=== PATIENT | female | born 1950 | race Caucasian/White ===

== ENCOUNTER 2019-11-03 11:49 | Emergency (ER) | payer MEDICARE, MEDICAID, SELFPAY ==
[2019-11-03 11:52] VITALS: BP 183/120; PULSE 78; RESP 20; TEMP 36.5; O2SAT 99
--- NOTE | 2019-11-03 12:21 | ED.SKABFB ---
HPI - Skin/Abscess/Foreign Bdy General Chief complaint: Skin/Abscess/Foreign Body Stated complaint: R DIALYSIS SITE INFECTION Time Seen by Provider: 11/03/19 12:18 Source: patient Mode of arrival: ambulatory Limitations: no limitations History of Present Illness HPI narrative: A 69 y/o female presents to the ED with c/o right arm infection. Pt states that on 10/09/19 she had a fistula placed in her right arm for dialysis. The surgery was done by her vascular surgeon, Dr. Rothman, at [facility]. She notes that last week her right arm started to become red and sore. Today she adds that she saw a pus pocket, so she decided to come to the ED. Pt reports that she has not removed the wrapping on her arm after the surgery, but cleans around it everyday. She has not had a follow-up appointment with Dr. Rothman. Pt denies fever and chills. 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 She has a PMHx of HTN, hyperlipidemia, emphysema, COPD, asthma, [place], and coronary STENT. She is not currently on blood thinners and is a smoker. MD complaint: other (Right arm infection) Onset (ago): week(s) (1) Location: RUE Pain Consistency: constant Context: other (Recent surgery) Associated symptoms: other (Right arm redness, right arm pain) Treatments prior to arrival: attempted to drain pus at home Related Data Home Medications Medication Instructions Recorded Confirmed aspirin 81 mg tablet,delayed 81 mg PO DAILY 07/05/19 11/01/19 release atorvastatin 40 mg tablet 40 mg PO DAILY 07/05/19 11/01/19 calcitriol 0.25 mcg capsule 0.25 mcg PO DAILY 08/07/19 11/01/19 diphenhydramine HCl 25 mg capsule 50 mg PO Q4-6H PRN cap 08/07/19 11/01/19 escitalopram oxalate 10 mg tablet 10 mg PO DAILY 08/07/19 11/01/19 nifedipine 30 mg tablet,extended 30 mg PO DAILY 08/07/19 11/01/19 release budesonide-formoterol HFA 160 2 puff INHALATION Q12H 11/01/19 11/01/19 mcg-4.5 mcg/actuation aerosol inhaler cholecalciferol (vitamin D3) 50 50 mcg PO DAILY 11/01/19 11/01/19 mcg (2,000 unit) capsule hydralazine 25 mg tablet 25 mg PO BID tablet 11/01/19 11/01/19 losartan 50 mg tablet 50 mg PO DAILY 11/01/19 11/01/19 ferric citrate [Auryxia] 210 mg PO DAILY 11/03/19 Allergies Allergy/AdvReac Type Severity Reaction Status Date / Time cephalexin Allergy Unknown Unknown Verified 11/03/19 12:10 doxycycline Allergy Unknown Unknown Verified 11/03/19 12:10 doxylamine Allergy Unknown Unknown Verified 11/03/19 12:10 lisinopril Allergy Unknown Unknown Verified 11/03/19 12:10 tetracycline Allergy Unknown Unknown Verified 11/03/19 12:10 sertraline AdvReac Intermediate VOMITTING Verified 11/03/19 12:10 SUCCINATE Allergy Mild Nausea Uncoded 11/01/19 14:36 MONOHYDRATE AdvReac Mild Nausea and Uncoded 11/01/19 14:36 Vomiting Review of Systems Review of Systems: All systems reviewed & are unremarkable except as noted in HPI and below Constitutional: Constitutional: Denies chills and Denies fever(s) Musculoskeletal: Musculoskeletal: Reports arthralgias (Right arm) Integumentary/Breasts: Skin/Breast: Reports erythema (Right arm) [facility] Past Medical History Medical History (Updated 11/05/19 @ 00:00 by Mira Menendez) Anxiety Arthritis Bipolar disorder Bowel obstruction 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 Chronic back pain CKD (chronic kidney disease) CKD (chronic kidney disease) stage 3, GFR 30-59 ml/min Claudication Colitis Colon cancer Depression Diabetes 1.5, managed as type 2 PALOMARES (dyspnea on exertion) Dyslipidemia Essential hypertension GERD (gastroesophageal reflux disease) Melanoma Right eye Post-menopausal Preop cardiovascular exam Tobacco abuse Surgical History Surgical History (Updated 11/03/19 @ 12:58 by Christina Tenorio) History of appendectomy History of bilateral oophorectomy History of colon resection History of colostomy reversal History of heart artery stent History of hernia repair History of tubal ligation Status post carotid surgery Family History Family
[2019-11-03 12:31] LABS: Basophils Absolute Auto 0.1 K/mm3 (0.0-0.1); Basophils Percent Auto 0.6 % (0.2-1.2); Eosinophils Absolute Auto 0.5 K/mm3 (0-0.3); Eosinophils Percent Auto 3.7 % (0-4.4); Hematocrit 35.9 % (37.0-47.0); Hemoglobin 11.2 g/dL (12.0-15.0); Immature Granulocyte Absolute 0.07 K/mm3 (0.00-0.031); Immature Granulocyte Percent A 0.6 % (0-0.5); Lymphocytes Absolute Auto 3.24 K/mm3 (0.9-3.2); Lymphocytes Percent Auto 26.3 % (18.3-44.2); Mean Corpuscular HGB Conc 31.2 g/dl (32-36); Mean Corpuscular Hemoglobin 28.3 pg (26-34); Mean Corpuscular Volume 90.7 fl (80-100); Mean Platelet Volume 9.8 fl (7.4-10.4); Monocytes Absolute Auto 0.8 K/mm3 (0.1-0.6); Monocytes Percent Auto 6.4 % (2.6-8.5); Neutrophils Absolute Auto 7.7 K/mm3 (1.3-6.7); Neutrophils Percent Auto 62.4 % (45.5-73.1); Platelet Count Result 396 k/mm3 (150-375); Red Blood Count 3.96 M/mm3 (4.2-5.4); Red Cell Distribution Width 15.3 % (11.5-14.5); White Blood Count 12.3 K/mm3 (4.5-10.0)
[2019-11-03 12:42] LABS: Alanine Aminotransferase 12 U/L (4-35); Albumin Level 4.2 g/dL (3.5-5.1); Alkaline Phosphatase 57 U/L (38-126); Aspartate Amino Transferase 15 U/L (14-36); Bilirubin,Total 0.3 mg/dL (0.2-1.3); Blood Urea Nitrogen 32 mg/dL (7-17); Carbon Dioxide 26 mmol/L (22-30); Chloride 106 mmol/L (98-107); Estimated Glomerular Filt Rate 14; Glucose 114 mg/dL (65-105); Potassium 3.4 mmol/L (3.4-5.0); Sodium 139 mmol/L (137-145)
[2019-11-03 14:41] VITALS: BP 160/66; PULSE 84; RESP 16; O2SAT 97
--- NOTE | 2019-11-03 14:44 | PC.NURSE ---
accepted by [facility] [id number]
[2019-11-03 14:46] LABS: Lactic Acid Reflex 0.9 mmol/L (0.7-2.1)
[2019-11-03 16:57] VITALS: BP 171/92; PULSE 84; RESP 16; O2SAT 97
== END 2019-11-03 14:52 | disposition short-term general hospital (02) ==
PROVIDERS: Emergency Provider Emergency Medicine; PCP Internal Medicine
DX: T82.7XXA Infection and inflammatory reaction due to other cardiac and vascular devices, implants and grafts, initial encounter (principal); I12.9 Hypertensive chronic kidney disease with stage 1 through stage 4 chronic kidney disease, or unspecified chronic kidney disease; N18.3 Chronic kidney disease, stage 3 (moderate); E13.22 Other specified diabetes mellitus with diabetic chronic kidney disease; N18.9 Chronic kidney disease, unspecified; Z99.2 Dependence on renal dialysis; E78.5 Hyperlipidemia, unspecified; J43.9 Emphysema, unspecified; J45.909 Unspecified asthma, uncomplicated; I25.2 Old myocardial infarction; Z95.5 Presence of coronary angioplasty implant and graft; F17.200 Nicotine dependence, unspecified, uncomplicated; Z85.038 Personal history of other malignant neoplasm of large intestine; K21.9 Gastro-esophageal reflux disease without esophagitis; Z90.49 Acquired absence of other specified parts of digestive tract; Z85.820 Personal history of malignant melanoma of skin
CPT/HCPCS: 36415; 80053; 83605; 85025; 87040; 87070; 87077; 87186; 87205; 96365; 99285; J3370

== ENCOUNTER 2019-11-24 13:14 | Outpatient (RCR) | payer MEDICARE, MEDICAID, SELFPAY ==
[2019-11-24 14:18] LABS: Vancomycin Trough 16.2 ug/mL (10.0-20.0)
== END 2020-02-22 23:59 | disposition home or self-care (01) ==
LOC: HOME HLTH 13:14
PROVIDERS: PCP Internal Medicine; Visit Provider Internal Medicine Infectious Disease
DX: T82.7XXD Infection and inflammatory reaction due to other cardiac and vascular devices, implants and grafts, subsequent encounter (principal); N18.9 Chronic kidney disease, unspecified; B96.5 Pseudomonas (aeruginosa) (mallei) (pseudomallei) as the cause of diseases classified elsewhere; Z79.2 Long term (current) use of antibiotics
CPT/HCPCS: 80202

== ENCOUNTER 2019-11-26 11:53 | Outpatient (RCR) | payer MEDICARE, MEDICAID, SELFPAY ==
[2019-11-14 12:20] LABS: Basophils Absolute Auto 0.1 K/mm3 (0.0-0.1); Basophils Percent Auto 0.5 % (0.2-1.2); Eosinophils Absolute Auto 0.4 K/mm3 (0-0.3); Eosinophils Percent Auto 3.1 % (0-4.4); Hematocrit 32.3 % (37.0-47.0); Hemoglobin 10.1 g/dL (12.0-15.0); Immature Granulocyte Absolute 0.09 K/mm3 (0.00-0.031); Immature Granulocyte Percent A 0.7 % (0-0.5); Lymphocytes Absolute Auto 3.18 K/mm3 (0.9-3.2); Mean Corpuscular HGB Conc 31.3 g/dl (32-36); Mean Corpuscular Hemoglobin 27.9 pg (26-34); Mean Corpuscular Volume 89.2 fl (80-100); Mean Platelet Volume 10.5 fl (7.4-10.4); Monocytes Absolute Auto 0.9 K/mm3 (0.1-0.6); Monocytes Percent Auto 7.1 % (2.6-8.5); Neutrophils Absolute Auto 8.6 K/mm3 (1.3-6.7); Neutrophils Percent Auto 64.6 % (45.5-73.1); Platelet Count Result 341 k/mm3 (150-375); Red Blood Count 3.62 M/mm3 (4.2-5.4); Red Cell Distribution Width 15.7 % (11.5-14.5); White Blood Count 13.3 K/mm3 (4.5-10.0)
[2019-11-14 12:22] LABS: Alanine Aminotransferase 8 U/L (4-35); Albumin Level 3.8 g/dL (3.5-5.1); Alkaline Phosphatase 44 U/L (38-126); Aspartate Amino Transferase 12 U/L (14-36); Bilirubin,Total < 0.1 mg/dL (0.2-1.3); Blood Urea Nitrogen 31 mg/dL (7-17); Calcium 9.7 mg/dL (8.4-10.2); Carbon Dioxide 20 mmol/L (22-30); Chloride 109 mmol/L (98-107); Estimated Glomerular Filt Rate 14; Glucose 104 mg/dL (65-105); Potassium 3.4 mmol/L (3.4-5.0); Sodium 137 mmol/L (137-145)
[2019-11-14 12:39] LABS: Vancomycin Random 17.7 ug/mL (10-20)
[2019-11-20 11:47] LABS: Alanine Aminotransferase 9 U/L (4-35); Albumin Level 3.8 g/dL (3.5-5.1); Alkaline Phosphatase 50 U/L (38-126); Aspartate Amino Transferase 14 U/L (14-36); Bilirubin,Total < 0.1 mg/dL (0.2-1.3); Blood Urea Nitrogen 35 mg/dL (7-17); Calcium 9.4 mg/dL (8.4-10.2); Carbon Dioxide 22 mmol/L (22-30); Chloride 105 mmol/L (98-107); Estimated Glomerular Filt Rate 14; Glucose 88 mg/dL (65-105); Potassium 3.1 mmol/L (3.4-5.0); Sodium 139 mmol/L (137-145)
[2019-11-20 11:48] LABS: Basophils Absolute Auto 0.1 K/mm3 (0.0-0.1); Basophils Percent Auto 0.5 % (0.2-1.2); Eosinophils Absolute Auto 0.4 K/mm3 (0-0.3); Eosinophils Percent Auto 3.6 % (0-4.4); Hematocrit 31.8 % (37.0-47.0); Hemoglobin 9.9 g/dL (12.0-15.0); Immature Granulocyte Percent A 0.8 % (0-0.5); Lymphocytes Absolute Auto 2.83 K/mm3 (0.9-3.2); Lymphocytes Percent Auto 23.4 % (18.3-44.2); Mean Corpuscular HGB Conc 31.1 g/dl (32-36); Mean Corpuscular Hemoglobin 27.8 pg (26-34); Mean Corpuscular Volume 89.3 fl (80-100); Mean Platelet Volume 10.4 fl (7.4-10.4); Monocytes Absolute Auto 1.1 K/mm3 (0.1-0.6); Monocytes Percent Auto 9.1 % (2.6-8.5); Neutrophils Absolute Auto 7.6 K/mm3 (1.3-6.7); Neutrophils Percent Auto 62.6 % (45.5-73.1); Platelet Count Result 354 k/mm3 (150-375); Red Blood Count 3.56 M/mm3 (4.2-5.4); Red Cell Distribution Width 15.1 % (11.5-14.5); White Blood Count 12.1 K/mm3 (4.5-10.0)
[2019-11-20 11:52] LABS: Vancomycin Trough 25.7 ug/mL (10.0-20.0)
[2019-11-26 12:15] LABS: Basophils Absolute Auto 0.1 K/mm3 (0.0-0.1); Basophils Percent Auto 0.5 % (0.2-1.2); Eosinophils Absolute Auto 0.6 K/mm3 (0-0.3); Eosinophils Percent Auto 4.2 % (0-4.4); Hematocrit 31.7 % (37.0-47.0); Immature Granulocyte Absolute 0.11 K/mm3 (0.00-0.031); Immature Granulocyte Percent A 0.8 % (0-0.5); Lymphocytes Percent Auto 19.3 % (18.3-44.2); Mean Corpuscular HGB Conc 31.5 g/dl (32-36); Mean Corpuscular Hemoglobin 28.1 pg (26-34); Mean Platelet Volume 9.8 fl (7.4-10.4); Monocytes Absolute Auto 0.9 K/mm3 (0.1-0.6); Neutrophils Absolute Auto 9.2 K/mm3 (1.3-6.7); Neutrophils Percent Auto 68.2 % (45.5-73.1); Platelet Count Result 355 k/mm3 (150-375); Red Blood Count 3.56 M/mm3 (4.2-5.4); Red Cell Distribution Width 14.6 % (11.5-14.5); White Blood Count 13.5 K/mm3 (4.5-10.0)
[2019-11-26 12:28] LABS: Alanine Aminotransferase 7 U/L (4-35); Albumin Level 3.8 g/dL (3.5-5.1); Alkaline Phosphatase 47 U/L (38-126); Aspartate Amino Transferase 14 U/L (14-36); Bilirubin,Total < 0.1 mg/dL (0.2-1.3); Blood Urea Nitrogen 38 mg/dL (7-17); Calcium 9.7 mg/dL (8.4-10.2); Carbon Dioxide 23 mmol/L (22-30); Chloride 104 mmol/L (98-107); Estimated Glomerular Filt Rate 14; Glucose 88 mg/dL (65-105); Potassium 3.9 mmol/L (3.4-5.0); Sodium 137 mmol/L (137-145)
[2019-11-26 12:57] LABS: Vancomycin Trough 10.1 ug/mL (10.0-20.0)
== END 2020-02-12 23:59 | disposition home or self-care (01) ==
LOC: HOME HLTH 11:53
PROVIDERS: PCP Internal Medicine
DX: N18.9 Chronic kidney disease, unspecified (principal); T82.7XXD Infection and inflammatory reaction due to other cardiac and vascular devices, implants and grafts, subsequent encounter; B96.5 Pseudomonas (aeruginosa) (mallei) (pseudomallei) as the cause of diseases classified elsewhere
CPT/HCPCS: 80053; 80202; 85025

== ENCOUNTER 2019-11-29 10:27 | Outpatient (CLI) | payer MEDICARE, MEDICAID, SELFPAY ==
[2019-11-29 10:42] LABS: Basophils Absolute Auto 0.1 K/mm3 (0.0-0.1); Basophils Percent Auto 0.6 % (0.2-1.2); Eosinophils Absolute Auto 0.5 K/mm3 (0-0.3); Eosinophils Percent Auto 3.7 % (0-4.4); Hemoglobin 10.6 g/dL (12.0-15.0); Immature Granulocyte Absolute 0.14 K/mm3 (0.00-0.031); Immature Granulocyte Percent A 1.1 % (0-0.5); Lymphocytes Absolute Auto 2.19 K/mm3 (0.9-3.2); Lymphocytes Percent Auto 17.8 % (18.3-44.2); Mean Corpuscular HGB Conc 31.2 g/dl (32-36); Mean Corpuscular Hemoglobin 27.9 pg (26-34); Mean Corpuscular Volume 89.5 fl (80-100); Mean Platelet Volume 9.5 fl (7.4-10.4); Monocytes Percent Auto 8.4 % (2.6-8.5); Neutrophils Absolute Auto 8.4 K/mm3 (1.3-6.7); Neutrophils Percent Auto 68.4 % (45.5-73.1); Platelet Count Result 355 k/mm3 (150-375); Red Cell Distribution Width 14.9 % (11.5-14.5); White Blood Count 12.3 K/mm3 (4.5-10.0)
[2019-11-29 11:01] LABS: Alanine Aminotransferase 9 U/L (4-35); Alkaline Phosphatase 49 U/L (38-126); Aspartate Amino Transferase 16 U/L (14-36); Bilirubin,Total 0.1 mg/dL (0.2-1.3); Blood Urea Nitrogen 39 mg/dL (7-17); Calcium 9.4 mg/dL (8.4-10.2); Carbon Dioxide 22 mmol/L (22-30); Chloride 104 mmol/L (98-107); Estimated Glomerular Filt Rate 12; Glucose 128 mg/dL (65-105); Potassium 3.6 mmol/L (3.4-5.0); Sodium 139 mmol/L (137-145)
[2019-11-29 11:21] LABS: Vancomycin Trough 25.2 ug/mL (10.0-20.0)
== END 2019-11-29 10:28 | disposition home or self-care (01) ==
PROVIDERS: PCP Internal Medicine; Visit Provider Internal Medicine Infectious Disease
DX: N18.9 Chronic kidney disease, unspecified (principal); B96.5 Pseudomonas (aeruginosa) (mallei) (pseudomallei) as the cause of diseases classified elsewhere; T82.7XXA Infection and inflammatory reaction due to other cardiac and vascular devices, implants and grafts, initial encounter
CPT/HCPCS: 80053; 80202; 85025

== ENCOUNTER 2020-12-30 08:22 | Outpatient (CLI) | payer MEDICARE, MEDICAID, SELFPAY ==
--- NOTE | 2020-12-30 08:51 | ECHO_ITS ---
Patient Info Name: Desirae Perdomo Age: 70 years : 1950 Gender: Female Ht: 63 in Wt: 186 lbs BSA: 1.97 m2 HR: 60 bpm BP: 146 / 77 mmHg Technical Quality: Good Exam Date: 12/30/2020 9:10 AM Exam Location: [facility] Patient Status: Outpatient Admit Date: 12/30/2020 Staff Ordering Physician: Vance Chew DO Telephone Station Repairer: Benji Sommer RDCS, RT Attending Provider: Vance Chew DO Referring Physician: Jeevan DIMAS; Exam Type: CA echo doppler color flow Study Info Indications R01.1 - Cardiac murmur, unspecified Complete two-dimensional, color flow and Doppler transthoracic echocardiogram is performed. Strain analysis performed. Summary 1. Complete two-dimensional, color flow and Doppler transthoracic echocardiogram is performed. 2. Left ventricular chamber dimension is normal. 3. Left ventricular systolic function is normal, estimated at 60-65%. 4. There is moderately increased left ventricular wall thickness. 5. The left ventricular diastolic function is abnormal. 6. E/e' 20 is elevated. 7. Global longitudinal strain is abnormal at -13.7%. 8. Left atrial chamber dimension is mildly enlarged. 9. The mitral valve has moderately calcified annulus. 10. There is mild to moderate mitral valve regurgitation. 11. There is trace pulmonic regurgitation. 12. Dilated inferior vena cava with >50% collapse upon inspiration consistent with elevated right atrial pressure, 10 mmHg. Left Ventricle E/e' 20 is elevated. Global longitudinal strain is abnormal at -13.7%. Left ventricular chamber dimension is normal. Left ventricular systolic function is normal, estimated at 60-65%. There is moderately increased left ventricular wall thickness. The left ventricular diastolic function is abnormal. Right Ventricle Right ventricular systolic function is normal with normal TAPSE 1.9 cm. Right ventricular chamber dimension is normal. Left Atria Left atrial chamber dimension is mildly enlarged. Right Atria Right atrial chamber dimension is normal. Aortic Valve The aortic valve is trileaflet. There is no aortic valve stenosis. There is no aortic valve regurgitation. Pulmonic Valve There is trace pulmonic regurgitation. Mitral Valve The mitral valve has moderately calcified annulus. There is no mitral valve stenosis. There is mild to moderate mitral valve regurgitation. Tricuspid Valve There is no tricuspid valve regurgitation. Pericardium/Pleural There is no pericardial effusion. Inferior Vena Cava Dilated inferior vena cava with >50% collapse upon inspiration consistent with elevated right atrial pressure, 10 mmHg. Aorta The aortic root size at the sinus of Valsalva is normal. Left Ventricular Outflow Tract Name Value Normal LVOT 2D LVOT Diameter 2.0 cm LVOT Doppler LVOT Peak Gradient 3 mmHg LVOT Mean Gradient 1 mmHg LVOT VTI 22 cm LVOT VTI/AV VTI Ratio 0.6 LVOT Stroke Volume 72 ml LVOT CO 4.5 l
== END 2020-12-30 08:23 | disposition home or self-care (01) ==
LOC: ANHCARD 08:23
PROVIDERS: PCP Internal Medicine; Visit Provider Internal Medicine Cardiovascular Disease
DX: R01.1 Cardiac murmur, unspecified (principal)
CPT/HCPCS: 93306

== ENCOUNTER 2022-12-14 09:07 | Outpatient (CLI) | payer MEDICARE, MEDICAID, SELFPAY ==
--- NOTE | ~2022-12-14 | PE_ITS ---
EXAMINATION: PET skull to mid thigh DATE: 12/14/2022 10:59 INDICATION: Solitary lung nodule TECHNIQUE: Blood glucose level was 99 mg/dL. 10.127 mCi of 18-fluorodeoxyglucose (18-FDG) was adminis tered i.v. Low dose computed tomography (CT) images were acquired from the base of the brain to the p roximal thighs for attenuation correction and anatomic localization. Positron emission tomography (PE T) images were acquired in the same distribution beginning minutes after injection. Images including fused PET/CT images were reconstructed in axial, coronal, and sagittal planes. Automated exposure con trol technique was employed. The dose-length product was 881.19 mGy-cm. COMPARISON: CT chest dated 09/12/2016 and abdomen and pelvis dated 06/23/2016 FINDINGS: Head/neck: There is symmetric increased activity in the oral cavity, palatine tonsils, parotid glands, submandi bular glands, laryngeal muscles, posterior paraspinal and ocular muscles without CT correlate, likely physiologic. No pathologically enlarged cervical lymphadenopathy or suspicious foci of increased FDG uptake in the visualized head or neck. Chest: 7 mm FDG avid nodule near the hilum in the right middle lobe with maximal SUV of 10.4. 2-3 mm right u pper lobe nodule without discernible FDG uptake. Mild FDG activity with maximal SUV of 3.2 associated with approximately 2 cm region of reticular and groundglass opacities surrounding subtle lucent airs paces at the posterior segment of the right upper lobe. No pleural effusion. Heart size is normal. At herosclerotic coronary artery calcific location. This also prominent atherosclerotic calcific locatio n along the normal caliber thoracic aorta. No pathologically enlarged or FDG avid thoracic lymphadeno bryce. Mild FDG uptake with maximal SUV of 2.6 associated with a 1.8 cm ovoid nodule smooth margins a t the upper outer quadrant of the left breast. Abdomen/pelvis/proximal thighs: Asymmetric right-sided predominant physiologic renal accumulation and excretion of FDG activity in th e kidneys with severe left renal atrophy. Additional excreted activity in the normal-appearing bladde r. Normal degree and heterogenous pattern of increased uptake throughout the liver. Photopenic defect associated with a 1.8 cm cyst in segment 3 of the liver. Tiny calcified gallstone in the normal appe aring partially decompressed gallbladder. Additional photopenic defect associated with a 1.3 cm low-a ttenuation splenic lesion most likely also a cyst or hemangioma. The pancreas and bilateral adrenal g lands are normal. Mild uptake scattered throughout the bowels without radiologic correlate, also like ly physiologic. Change of interval infraumbilical ventral hernia mesh repair. No other abnormal foci of increased FDG uptake or pathologically enlarged lymphadenopathy in the abdomen, pelvis or proximal thighs. Musculoskeletal: Mild likely degenerative joint centered uptake at the bilateral acromioclavicular joints. Symmetric p attern of mild likely physiologic uptake without radiologic correlate involving the thoracic paraspin al and intercostal musculature. Increased uptake overlying the bilateral greater trochanters consiste nt with likely trochanteric bursitis. Small bone island at the left innominate bone without evident F DG activity. No suspicious lytic, blastic or FDG avid bone lesions. IMPRESSION: 1. Moderate increased FDG uptake associated with a 7 mm right middle lobe nodule near the hilum suspi cious for malignancy but which could also be infectious/inflammatory in etiology. The nodule would no t be amenable to percutaneous biopsy given its small size and perihilar location very close to the ce ntral vessels and bronchi of the right middle lobe. 2. Negligible FDG activity associated with a 2 cm subsolid focus of lung disease in the posterior seg ment of the right upper lobe. Although the absence of significant FDG u
[2022-12-14 09:35] LABS: Glucose Point of Care 99 mg/dl (65-105)
== END 2022-12-14 09:08 | disposition home or self-care (01) ==
PROVIDERS: PCP Internal Medicine; Visit Provider Internal Medicine
DX: R91.1 Solitary pulmonary nodule (principal); K80.20 Calculus of gallbladder without cholecystitis without obstruction; N26.1 Atrophy of kidney (terminal)
CPT/HCPCS: 78815; A9552